=== PATIENT | male | born 2005 | race Caucasian/White ===

== ENCOUNTER → 2025-03-14 09:39 | Outpatient (CLI) | payer BC, SELFPAY ==
--- NOTE | 2025-03-14 09:41 | DI.RAD.S_ITS ---
PROCEDURE: XR CHEST 2V INDICATIONS: cough, SOB TECHNIQUE: 2 views of the chest were acquired. COMPARISON: [facility], , CHEST 2 VIEW, 06/06/2014, 9:33. FINDINGS: Surgical changes and devices: None. Lungs and pleura: Focal pneumonia, superior segment of left lower lobe. There may also be patchy infiltrate in the left upper lobe. Mediastinum: Mediastinal contours are normal. Heart size is normal. Bones and chest wall: No suspicious bony abnormalities. Soft tissues appear unremarkable. IMPRESSION: Superior segment left lower lobe pneumonia, question patchy left upper lobe pneumonia. Comment: Progress films are recommended until clear. Dictated by: Aidan Salinas M.D. on 03/14/2025 at 10:05 Approved by: Aidan Salinas M.D. on 03/14/2025 at 10:06
== END ==
PROVIDERS: PCP Nurse Practitioner Family; Referring Provider Physician Assistant Medical; Visit Provider Physician Assistant Medical
DX: J18.9 Pneumonia, unspecified organism (principal); R05.9 Cough, unspecified
CPT/HCPCS: 71046